=== PATIENT | male | born 1985 | race Caucasian/White ===

== ENCOUNTER 2021-06-06 18:50 | Emergency (ER) | payer OTHER, SELFPAY ==
[2021-06-06 19:10] VITALS: BP 126/82; PULSE 86; RESP 17; TEMP 36.7; O2SAT 99
--- NOTE | 2021-06-06 19:14 | ED.URI ---
HPI - URI/Sore Throat General Chief Complaint: Upper Respiratory Infection Stated Complaint: Fever, Chills, Headache, Cough Source: patient and RN notes reviewed History of Present Illness HPI Narrative: This is a 36-year-old male who presented to urgent care tested for Covid. According to patient he was exposed to Covid by his coworker approximately 4 days ago he started experiencing headache, fatigue, muscle aches, cough, runny nose and fever. Patient did test his stuff at home for culture which was positive he came in today to retest. He did test positive. Patient instructed to stay quarantine in use [id number] medication for symptoms he did discharge with dexamethasone due to his history of asthma. The patient denies SOB, CP, palpitation, extremity numbness, lightheadedness, dizziness, constipation, diarrhea, chills, or fever. MD elicited complaint: fever and cough Related Data Home Medications Medication Instructions Recorded Confirmed albuterol sulfate 90 mcg INHALATION PRN PRN 06/06/21 06/06/21 fluticasone propion-salmeterol 50 inh INHALATION DAILY 06/06/21 06/06/21 [Advair Diskus] metoprolol succinate 25 mg PO DAILY 06/06/21 06/06/21 omeprazole 40 mg PO DAILY 06/06/21 06/06/21 Allergies Allergy/AdvReac Type Severity Reaction Status Date / Time No Known Allergies Allergy Verified 06/06/21 18:56 Review of Systems Review of Systems: Narrative: A 14 organ system Review of Systems was performed and pertinent positives included in the HPI, otherwise remaining ROS is negative. All systems reviewed & are unremarkable except as noted in HPI and below PMFSH Family History Family History (Updated 06/07/21 @ 10:04 by RJ Marinelli-C) Other Family history non-contributory Social History Social History Gender identity (if verbalized by the patient): Male Sexual Orientation (if Verbalized by the Patient): Straight or Heterosexual Exam Narrative: Exam Narrative: GENERAL: This is a well-nourished, well-developed patient, in no apparent distress. HEAD: normocephalic, atraumatic. EYES: PERRL. Sclera clear/white. Vision is grossly intact. EARS: External ears normal, auditory canals clear and without drainage, TMs normal without perforation. Hearing grossly intact. NOSE: External nose normal with no obvious nasal discharge, nares without redness, no rhinorrhea. THROAT: Mucous membranes moist, posterior pharynx clear. NECK: Neck supple, non-tender without lymphadenopathy, masses or thyromegaly. CARDIOVASCULAR: Regular rate and rhythm without murmurs, gallops, or rubs. RESPIRATORY: Clear to auscultation. Breath sounds equal bilaterally. No wheezes, rales, or rhonchi. GASTROINTESTINAL: Abdomen soft, non-tender, nondistended. Bowel sounds are active. No hepato-splenomegaly, or palpable masses. No guarding. SKIN: warm, intact with no suspicious lesions or rash, good texture and turgor. NEURO: awake, alert, and oriented to person, place and time. There were no obvious focal neurologic abnormalities. Steady gait EXTREMITIES: Normal range of motion. No edema. No calf tenderness. Negative Homans sign bilaterally. BACK: Nontender without deformity or crepitance. No flank tenderness. Course Course Emergency Course: Patient tested positive for Covid instructed to stay quarantine also informed to tell anybody that he has been exposed to quarantine patient given dexamethasone due to his history of asthma Vital Signs Vital signs: Vital Signs Temperature 98.0 F 06/06/21 19:10 Pulse Rate 86 06/06/21 19:10 Respiratory Rate 17 06/06/21 19:10 Blood Pressure 126/82 06/06/21 19:10 Pulse Oximetry 99 06/06/21 19:10 Temperature 98.0 F 06/06/21 19:10 Pulse Rate 86 06/06/21 19:10 Respiratory Rate 17 06/06/21 19:10 Blood Pressure 126/82 06/06/21 19:10 Pulse Oximetry 99 06/06/21 19:10 MDM - URI/Sore Throat Differential Diagnosis Differential diagnosis: Likely upper respiratory infe
== END 2021-06-06 19:32 | disposition home or self-care (01) ==
PROVIDERS: Emergency Provider Nurse Practitioner; PCP Family Medicine
DX: U07.1 COVID-19 (principal)
CPT/HCPCS: 87426; 99213; C9803; G0463

== ENCOUNTER 2021-11-05 11:00 | Outpatient (RCR) | payer OTHER, SELFPAY ==
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
--- NOTE | 2021-09-01 08:44 | PCPTNOTE ---
Patient called & cancelled scheduled appointment this date - rescheduled for 09/03/2021.
--- NOTE | 2021-09-22 15:56 | PCPTNOTE ---
Patient called & cancelled scheduled appointment this date - rescheduled for 09/24/21.
--- NOTE | 2021-09-24 16:50 | PTOPEVAL ---
PHYSICAL THERAPY RE-EVALUATION and UPDATED PLAN OF CARE Thank you for referring Servando Boone to [facility].? Servando has made gains in PT - but he still had increase in cervical pain levels with heavier yard work. His level of discomfort is decreasing quicker than in the past. Spinal segmental dysfunction is still present with thoracic and cervical spine as well as increase in cervical soft tissue tension. He will continue to benefit from skilled physical therapy? 2x/week for 4 weeks. Please review, sign, date and return this plan of care RODRIGO. I agree with and certify that the following plan of care is medically necessary. Referring Physician Date Admitting Provider: Attending Provider: Rose Marie Lu DO Referring Provider: Rose Marie Lu DO Therapy Assessment Status Assessment Status Assessment Status Re-evaluation Evaluation Information Problem Diagnosis cervicalgia Subjective Information Servando reports that he did Query Text:As Reported By Patient/ yard work over the weekend. Family Increase in discomfort, but not as painful as it usually is. No shooting pains down his back but pain levels did go back up to higher levels. After completing yard work - needed to lie on couch due to pain. Pain has decreased since then quicker than before . This episode did not affect his sleep whereas in the past it would have. Pain Assessment Timing of Pain Assessment Timing of Pain Assessment Assessment Pain Scale Pain Scale Used Numeric (1 - 10) Self Report Pain Assessment Neck Reported Pain Level 4 Pain Description Dull Other Pain Description stiffness Lowest Pain Intensity 2 Greatest Pain Intensity 8 Other Pain Aggravating Factors yard work Cervical and Lumbar ROM Cervical ROM Cervical Flexion (0-60) 45 Query Text:Active in Degrees Cervical Extension (0-70) 40 Query Text:Active in Degrees Cervical Lateral Flexion Right (0-50) 25 Query Text:Active in Degrees Cervical Lateral Flexion Left (0-50) 25 Query Text:Active in Degrees Cervical Rotation Right (0-90) 55 Query Text:Active in Degrees Cervical Rotation Left (0-90) 50 Query Text:Active in Degrees Cervical ROM Comments discomfort present with lateral cervical muscles Cervical and Lumbar Muscle Testing Cervical Muscle Testing Deep Cervical Flexion 1 min 6 sec PT Clinical Summary Clinical Summary Protocol: PTEVCODE PT Clinical Summary Neck Disability Index - 16% E
--- NOTE | 2021-10-08 09:54 | PCPTNOTE ---
Patient called to cancel this date due to having a cold.
--- NOTE | 2021-10-27 11:44 | PEDREH ---
I agree with and certify that the above recommended change(s) to the plan of care are medically necessary. ? Referring Physician?Date Admitting Provider: Attending Provider: Rose Marie Lu DO Referring Provider: Rose Marie Lu DO 10/27/21 PHYSICAL THERAPY PROGRESS REPORT Servando Boone has completed a total number of 4 treatment sessions since last report was written on 09/24/21. Summary of Progress: Servando reports that overall he has seen an improvement since starting PT services. He reports that he continues to have pain after yard work and neck stiffness while driving. He states that he is not getting sharp pains like he was prior to starting PT. Servando continues to present with decreased cervical active ROM, decreased UE strength, especially scapular musculature as well as poor body mechanics/positioning during activities. Recommendations: Servando would continue to benefit from skilled PT to address these deficits and assist him in improving his functional mobility. Thank you for referring Servando Boone to [facility].? The patient is scheduled to be seen for therapy?1x/week for 2-3 weeks.? Please review, sign, date and return this plan of care RODRIGO.
--- NOTE | 2021-11-13 10:07 | PCPTNOTE ---
Pt did not show up for scheduled appointment this date. PT called and left pt a message regarding missed visit.
--- NOTE | 2022-01-26 08:23 | PCPTNOTE ---
Admitting Provider: Attending Provider: Rose Marie Lu DO Patient:Servando Boone Date of :1985 PHYSICAL THERAPY DISCHARGE SUMMARY Patient has not returned for any further treatments since 11/05/2021, therefore he will be discharged at this time. Pt has been seen for 14 visits since initial evaluation. Pt was scheduled for an appointment on 11/13/21 however he did not show up for appointment that date; therapist called and left a message regarding missed appointment. The goals have been partially met. Thank you for referring this patient to [facility]. Please review, sign, date and return this discharge summary RODRIGO. I have been updated about the patient's current status and I agree with discharge from the above service at this time. Referring Physician Date
== END 2021-11-27 23:59 | disposition home or self-care (01) ==
LOC: ANHHIPT 11:00
PROVIDERS: PCP Family Medicine; Referring Provider Family Medicine; Visit Provider Family Medicine
DX: M54.2 Cervicalgia (principal)
CPT/HCPCS: 97110; 97140; 97162

== ENCOUNTER 2023-01-18 19:04 | Emergency (ER) | payer OTHER, SELFPAY ==
[2023-01-18 19:17] VITALS: BP 128/78; PULSE 66; RESP 18; TEMP 36.3; O2SAT 99
--- NOTE | 2023-01-18 19:29 | ED.GENADULT ---
HPI - General Adult General Chief complaint: Ear Stated complaint: bilateral ear pain Time Seen by Provider: 01/18/23 19:19 Source: patient Mode of arrival: ambulatory Limitations: no limitations History of Present Illness HPI narrative: Patient presents today complaining of a dull pain to the bilateral ears after cleaning them with a battery powered water flush your last night. Hearing is normal. Denies drainage from the ears. Related Data Home Medications Medication Instructions Recorded Confirmed fluticasone 500 mcg-salmeterol 50 50 inh inhalation DAILY 06/06/21 01/18/23 mcg/dose blistr powdr for inhalation (Advair Diskus) omeprazole 40 mg capsule,delayed 40 mg PO DAILY 06/06/21 01/18/23 release Allergies Allergy/AdvReac Type Severity Reaction Status Date / Time No Known Allergies Allergy Verified 01/18/23 19:07 Review of Systems Review of Systems: CONSTITUTIONAL: Denies body aches, fever, chills, or sweats. EYES: Denies visual changes, redness, or discharge. ENT: Denies rhinorrhea, congestion, sore throat. + bilateral ear pain CARDIOVASCULAR: Denies chest pain, palpitations, or edema. RESPIRATORY: Denies cough or dyspnea. GASTROINTESTINAL: Denies abdominal pain, nausea, vomiting, or diarrhea. GENITOURINARY: Denies dysuria or hematuria. SKIN: Denies rash, itching, or wounds. MUSCULOSKELETAL: Denies back pain, joint pain, or myalgia. NEUROLOGIC: Denies headache, numbness, tingling, or weakness. PSYCH: Denies depression or anxiety. PMFSH Past Medical History Medical History Acquired solitary kidney Afib Anxiety Asthma Bilateral knee pain BMI 29.0-29.9,adult Chronic GERD Elevated fasting glucose Gallstones Hyperlipidemia Low back pain Nocturia Prostatitis Rosacea Tobacco abuse Surgical History Surgical History H/O kidney removal 06 Left side Hx of tonsillectomy [place] teeth extracted Family History Family History Father Hypertension Depression Heart disease Skin cancer Mother Depression Sibling Depression Heart disease Son Depression Other Family history non-contributory Social History Social History Smoking packs per day: 0.5 Smoking cigarettes per day: 10.0 Smoking status: Current every day smoker Second hand tobacco smoke exposure: Yes Alcohol intake: current Alcohol use details: Occasionally Substance use: never Substance use type: does not use Lack of Transportation: No Lack of Food: Never True Current Housing: I Have Housing Concerned About Future Housing: No Difficulty Paying Gas/Electric Bills: No Difficulty Paying for Meds: No Currently Unemployed: No Education: Master's Degree or Higher Difficulty w/ Childcare or Family Care: No Living arrangements: with family Occupation/Education: retired Gender identity (if verbalized by the patient): Male Sexual Orientation (if Verbalized by the Patient): Straight or Heterosexual Spiritual care concerns: No Agree to blood products: Yes Comments At time of signature, I have reviewed and agree with nursing past medical, surgical, social and family history unless otherwise noted. Please see nursing chart for further information. There is no relevant family history pertinent to the presenting complaint Exam Narrative: GENERAL: Well-appearing, well-nourished, and in no acute distress. HEAD: Normocephalic, atraumatic. EYES: EOMI. No redness or drainage. Conjunctivae normal. ENT: Mucous membranes pink and moist. Nares clear. No rhinorrhea. Right TM normal. Left TM is occluded with wax. NECK: Normal AROM. CHEST: No respiratory distress. EXTREMITIES: Normal range of motion. No edema. SKIN: Warm, dry, no rash. Capillar
== END 2023-01-18 19:35 | disposition home or self-care (01) ==
PROVIDERS: Emergency Provider Nurse Practitioner; PCP Family Medicine
DX: H61.22 Impacted cerumen, left ear (principal); I48.91 Unspecified atrial fibrillation; E78.5 Hyperlipidemia, unspecified; F41.9 Anxiety disorder, unspecified; F17.210 Nicotine dependence, cigarettes, uncomplicated
CPT/HCPCS: 69210; 99213; G0463

== ENCOUNTER 2024-10-08 15:13 | Emergency (ER) | payer OTHER, SELFPAY ==
--- NOTE | 2024-10-08 15:24 | ED.GENADULT ---
HPI - General Adult General Chief complaint: Headache Stated complaint: headache Time Seen by Provider: 10/08/24 15:24 Source: patient Mode of arrival: ambulatory Limitations: no limitations History of Present Illness HPI narrative: 39-year-old male patient presents to the [facility] with complaints of a left-sided headache right above the left eye that started today. Patient states about a weaker and a half ago he had a cold and states all symptoms have resolved but has some continues to have some nasal congestion and today started having a headache. Patient only has 1 kidney so he is not able take any NSAIDs did take some Tylenol for the pain. Related Data Home Medications Medication Instructions Recorded Confirmed mecobalamin (vitamin B12) 1,000 1,000 mcg PO DAILY 12/13/23 10/08/24 mcg chewable tablet (B12 Active) amiodarone 400 mg tablet 400 mg PO DAILY 01/04/24 10/08/24 magnesium glycinate 240 mg BYMOUTH DAILY 01/04/24 10/08/24 trazodone 50 mg PO .nightly 01/04/24 10/08/24 zinc gluconate,zinc picolinate 30 30 mg PO DAILY 01/04/24 10/08/24 mg capsule tirzepatide (weight loss) 5 mg/0.5 7.5 mg subcut WEEKLY 04/03/24 10/08/24 mL subcutaneous pen injector (Zepbound) Allergies Allergy/AdvReac Type Severity Reaction Status Date / Time No Known Allergies Allergy Verified 10/08/24 15:42 Review of Systems Review of Systems: CONSTITUTIONAL: Denies fever, chills, or sweats. EYES: Denies visual changes, redness, or discharge. ENT: Denies rhinorrhea, positive congestion, denies sore throat, or otalgia. CARDIOVASCULAR: Denies chest pain, palpitations, or edema. RESPIRATORY: Denies cough or dyspnea. GASTROINTESTINAL: Denies abdominal pain, nausea, vomiting, or diarrhea. GENITOURINARY: Denies dysuria or hematuria. SKIN: Denies rash or itching. MUSCULOSKELETAL: Denies back pain, joint pain, or myalgia. NEUROLOGIC: Positive headache, denies numbness, or weakness. PSYCHIATRIC: Denies anxiety or depression. [facility] Past Medical History Medical History Acquired solitary kidney Afib Anxiety Asthma B12 deficiency Bilateral knee pain BMI 29.0-29.9,adult Chronic GERD COVID-19 (~05/27/23) Elevated fasting glucose Gallstones Hyperlipidemia Insomnia Low back pain Nocturia Prostatitis Rosacea Tobacco abuse Surgical History Surgical History H/O kidney removal 06 Left side Hx of tonsillectomy [place] teeth extracted Family History Family History Father Hypertension Depression Heart disease Skin cancer Mother Depression Sibling Depression Heart disease Son Depression Other Family history non-contributory Social History Social History Smoking packs per day: 0.5 Smoking cigarettes per day: 10.0 Smoking status: Former smoker Second hand tobacco smoke exposure: Yes Alcohol intake: current Alcohol use details: Occasionally Substance use: never Substance use type: does not use Lack of Transportation: No Lack of Food: Never True Current Housing: I Have Housing Concerned About Future Housing: No Difficulty Paying Gas/Electric Bills: No Difficulty Paying for Meds: No Currently Unemployed: No Education: Master's Degree or Higher Difficulty w/ Childcare or Family Care: No Living arrangements: with family Occupation/Education: retired Gender identity (if verbalized by the patient): Male Sexual Orientation (if Verbalized by the Patient): Straight or Heterosexual Spiritual care concerns: No Agree to blood products: Yes Comments At the time of my signature I agree with nursing past medical history, surgical, social, and family history. There is no relevant family history pertinent to the presenting complaint. Exam Narrative: GENERAL: Well-appearing, well-nourished, and in no acute distress. HEAD: Normocephalic, atraumatic. EYES: PERRLA and EOMI. ENT: Nares with erythema edema noted bilaterally, no rhinorrhea or epistaxis. Mucous membranes moist. posterior pharynx with no erythema, tonsillar enlargement, exudates or lesions present. Bilateral TMs are clear no erythema or foreign bodies the canal. NECK: Supple. No lymphadenopathy CHEST: Clear to auscultation. No respiratory distress. HEART: Regular rate and rhythm. No murmur heard. Normal peripheral pulses. ABDOMEN: Soft, nontender, nondistended, normal active bowel sounds. EXTREMITIES: Normal range of motion. No edema. SKIN: Warm, dry, no rash. NEURO: No focal deficits. Alert and oriented x3. Course Course Level of Care: Express Care Visit Vital Signs Vital signs: Vital Signs Temperature 36.3 C L 10/08/24 15:34 Pulse Rate 70 10/08/24 15:34 Respiratory Rate 18 10/08/24 15:34 Blood Pressure 110/69 10/08/24 15:34 Pulse Oximetry 98 10/08/24 15:34 Oxygen Delivery Room Air 10/08/24 15:34 Temperature 36.3 C L 10/08/24 15:34 Pulse Rate 70 10/08/24 15:34 Respiratory Rate 18 10/08/24 15:34 Blood Pressure 110/69 10/08/24 15:34 Pulse Oximetry 98 10/08/24 15:34 Oxygen Delivery Room Air 10/08/24 15:34 Vital signs reviewed Medical Decision Making MDM Narrative Medical decision making narrative: Discussed with patient this could be most likely leftover inflammation from the virus that he had about a week ago. Discussed with patient that he is not exhibiting any symptoms of a bacterial infection therefore I do not think an antibiotic is appropriate at this time. Discussed with patient that he can try [id number] Flonase, continue taking Tylenol he also may want to try a Neti pot at, humidifier in his bed as well as a massage over the area to help drain the sinuses. Discussed with patient if he develops fevers or worsening pain to either see his primary doctor he can come back here for further evaluation. Differential Diagnosis Differential Diagnosis: differential diagnosis: Migraine, cluster headache, tension headache, sinusitis, dental infection, TMJ problems, pseudotumor cerebri, meningitis, encephalitis, giant cell arteritis, glaucoma, subarachnoid hemorrhage, subdural or epidural hematoma, intracranial bleed or tumor. Vital Signs Vital Signs: Vital Signs Temperature 36.3 C L 10/08/24 15:34 Pulse Rate 70 10/08/24 15:34 Respiratory Rate 18 10/08/24 15:34 Blood Pressure 110/69 10/08/24 15:34 Pulse Oximetry 98 10/08/24 15:34 Oxygen Delivery Room Air 10/08/24 15:34 Temperature 36.3 C L 10/08/24 15:34 Pulse Rate 70 10/08/24 15:34 Respiratory Rate 18 10/08/24 15:34 Blood Pressure 110/69 10/08/24 15:34 Pulse Oximetry 98 10/08/24 15:34 Oxygen Delivery Room Air 10/08/24 15:34 Critical Care Time Critical Care Time Critical Care Time: No Discharge Plan Discharge Clinical Impression: Acute viral sinusitis Patient Disposition: Home, Self-Care Condition: Stable Instructions: Antibiotic Form, Sinusitis (ED) Additional Instructions: Viral illness may last between 7-12days; antibiotic is NOT recommended at this time. Recommend antihistamine such as Benadryl at night time and Claritin/Zyrtec/Cady during the day Also, recommend symptomatic treatment includes: rest, fluids, and increase humidity of theair at home. May also try and Neti pot, [id number] Flonase and humidified air to help release inflammation in the sinus cavities. Recommend Acetaminophen or nonsteroidal anti-inflammatory agents (NSAIDs) as directed in the bottle to reduce fever and/pain/headache. Avoid smoking/second-hand smoke. Limit visits to areas with large crowds. Please schedule a follow-up visit with your personal physician for further evaluation and treatment within 3-5days. Including recheck and discussion of your blood pressure. If your symptoms persist, change or worsen significantly before you can contact your personal physician then please, without delay, go to the emergency department for further evaluation. 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 metoprolol succinate 25 mg tablet extended release 24 hr 25 mg PO BID Qty: 180 4RF zolpidem [Ambien] 10 mg tablet 5 - 10 mg PO QHS PRN (Reason: sleep) Qty: 30 5RF Follow-up/Referrals: Anuj Roque MD [Primary Care Provider] - Time of Disposition: 16:11
[2024-10-08 15:34] VITALS: BP 110/69; PULSE 70; RESP 18; TEMP 36.3; O2SAT 98
== END 2024-10-08 16:14 | disposition home or self-care (01) ==
PROVIDERS: Emergency Provider Nurse Practitioner Family; PCP Family Medicine
DX: J01.90 Acute sinusitis, unspecified (principal); Z87.891 Personal history of nicotine dependence; I48.91 Unspecified atrial fibrillation; J45.909 Unspecified asthma, uncomplicated; E78.5 Hyperlipidemia, unspecified; E53.8 Deficiency of other specified B group vitamins
CPT/HCPCS: 99211; G0463